=== PATIENT | female | born 1970 | race Caucasian/White ===

== ENCOUNTER → 2024-10-29 | Outpatient (CLI) | payer BC ==
[2024-10-29 17:07] LABS: CLUE CELLS NOT OBSERVED (Not Observd)
== END ==
LOC: LAB 16:22
PROVIDERS: Nurse Practitioner Family
DX: R30.9 Painful micturition, unspecified (principal)
CPT/HCPCS: Q0111

== ENCOUNTER → 2024-12-08 | Outpatient (CLI) | payer BC ==
[2024-12-08 17:58] LABS: BASO # 0.01 K/mm3 (0.02-0.10); EOS % 1.4 % (1.0-5.0); HEMATOCRIT 39.5 % (37.0-47.0); HEMOGLOBIN 13.2 g/dL (12.5-16.0); LYMPH# 1.74 K/mm3 (1.50-4.00); MEAN CELL VOLUME 91 fl (78-100); MEAN CORPUSCULAR HEMOGLOBIN 30 pg (27-31); MEAN CORPUSCULAR HGB CONC 33 g/dL (33-37); MEAN PLATELET VOLUME 8.1 fl (7.4-10.4); MONO # 0.56 K/mm3 (0.20-0.80); PLATELET COUNT 265 K/mm3 (130-400); RED BLOOD COUNT 4.36 M/mm3 (4.10-5.30); RED CELL DISTRIBUTION WIDTH 13.1 % (11.5-14.5); WHITE BLOOD COUNT 7.1 K/mm3 (4.8-10.8)
[2024-12-08 18:06] LABS: ALBUMIN 4.4 g/dL (3.5-5.0)
[2024-12-08 18:07] LABS: CALCIUM 9.9 mg/dL (8.3-10.5)
[2024-12-08 18:08] LABS: TOTAL PROTEIN 7.6 g/dL (6.4-8.3)
[2024-12-08 18:10] LABS: TOTAL BILIRUBIN 0.4 mg/dL (0.2-1.2)
[2024-12-08 18:15] LABS: MAGNESIUM 1.94 mg/dL (1.60-2.60)
== END ==
LOC: LAB 17:41
PROVIDERS: Internal Medicine
DX: R20.2 Paresthesia of skin (principal); E78.2 Mixed hyperlipidemia; R73.9 Hyperglycemia, unspecified